=== PATIENT | female | born 1980 | race Hispanic/Latino ===

== ENCOUNTER → 2021-03-30 | Day surgery (SDC) | payer MEDICAID ==
[2021-03-29 09:39] VITALS: BMI 39.4
[~2021-03-30] MED LIST: Bupivacaine PF 0.5% 30 ML VIAL ONE; Dexamethasone 20 MG/5 ML VIAL ONE; EPINEPHrine 1 MG/ML AMP ONE; Fentanyl 100 MCG/2 ML VIAL ONE; HYDROcodone/Acetaminophen 5/325 mg Tablet PO PRN; Isosulfan Blue 50 MG/5 ML VIAL ONE; Ketorolac Tromethamine 30 MG/ML VIAL ONE; Lidocaine 1% MPF 2 ML VIAL ONE; Lidocaine 1% PF 5 ML VIAL ONE; Ondansetron PF 4 MG/2 ML Vial ONE; PROPOFOL 20 ML ONE
== END | disposition home or self-care (01) ==
LOC: CSHSDC 08:37
PROVIDERS: ATTEND Surgery
DX: C50.411 Malignant neoplasm of upper-outer quadrant of right female breast (principal); Z17.0 Estrogen receptor positive status [ER+]; Z90.49 Acquired absence of other specified parts of digestive tract
CPT/HCPCS: 78195; 88307; 88341; 88342; A9541; J0171; J0690; J1100; J1885; J2405; J2704; J3010; J3490; Q9968; S0020

== ENCOUNTER 2023-06-22 13:01 | Outpatient (CLI) | payer OTHER | END 2023-06-22 13:02 | disposition home or self-care (01) | LOC: CSHMAMMO 13:01 | PROVIDERS: ATTEND Surgery | DX: Z08 Encounter for follow-up examination after completed treatment for malignant neoplasm (principal); Z85.3 Personal history of malignant neoplasm of breast | CPT/HCPCS: 77066; G0279 ==

== ENCOUNTER 2024-01-24 09:32 | Outpatient (CLI) | payer OTHER | END 2024-01-24 09:33 | disposition home or self-care (01) | LOC: CSHMAMMO 09:32 | PROVIDERS: ATTEND Internal Medicine Hematology & Oncology | DX: M81.0 Age-related osteoporosis without current pathological fracture (principal) | CPT/HCPCS: 77080 ==

== ENCOUNTER 2024-06-24 13:00 | Outpatient (CLI) | payer OTHER | END 2024-06-24 13:01 | disposition home or self-care (01) | LOC: CSHMAMMO 13:00 | PROVIDERS: ATTEND Surgery | DX: Z08 Encounter for follow-up examination after completed treatment for malignant neoplasm (principal); Z85.3 Personal history of malignant neoplasm of breast | CPT/HCPCS: 77066; G0279 ==